=== PATIENT | male | born 2000 ===

== ENCOUNTER 2023-12-02 08:42 | Emergency (ER) | payer SELFPAY ==
[2023-12-02] MEDS: Diphtheria,Pertussis(Acell),Tetanus Vaccine 0.5 ML Syringe IM ONE (09:12)
[2023-12-02] MEDS: Acetaminophen 500 MG Tab PO ONE (09:12)
== END 2023-12-02 09:35 | disposition home or self-care (01) ==
LOC: DL.ED 08:42
DX: M25.572 Pain in left ankle and joints of left foot (principal); Z23 Encounter for immunization; W11.XXXA Fall on and from ladder, initial encounter
CPT/HCPCS: 73610; 90471; 90715; 99283; A9270